=== PATIENT | male | born 2000 | race Two or more races ===

== ENCOUNTER 2021-01-09 12:02 | Emergency (ER) | payer SELFPAY ==
[~2021-01-09] VITALS: Ht 175.3 cm; Wt 65.8 kg
[2021-01-09 13:11] VITALS: BP 119/46
== END 2021-01-09 13:13 | disposition home or self-care (01) ==
LOC: ER 12:02
DX: S00.412A Abrasion of left ear, initial encounter (principal); Y04.0XXA Assault by unarmed brawl or fight, initial encounter; Y93.89 Activity, other specified; Y92.89 Other specified places as the place of occurrence of the external cause; Y99.8 Other external cause status